=== PATIENT | male | born 2000 | race Hispanic/Latino ===

== ENCOUNTER 2024-02-27 20:57 | Emergency (ER) | payer OTHER ==
[~2024-02-27] VITALS: Ht 160 cm; Wt 61.2 kg
[2024-02-27] MEDS: 0.9%NACL 1000ML 1,000 ML IV STA ×2 (21:45→22:44)
[2024-02-27] MEDS: ONDANSETRON 4MG INJ IVP STA (21:45)
[2024-02-27 21:59] LABS: BASOPHILS # (AUTO) 0.06 K/uL (0.00-0.20); BASOPHILS % (AUTO) 0.3 % (0.0-5.0); HEMATOCRIT 47.2 % (42-54); IMMATURE GRANULOCYTE ABSOLUTE 0.14 K/uL (0-1); LYMPHOCYTES # (AUTO) 1.5 K/uL (1.0-4.8); LYMPHOCYTES % (AUTO) 7.2 % (21.0-51.0); MEAN CORPUSCULAR HEMOGLOBIN 28.3 pg (27.0-33.0); MEAN CORPUSCULAR HGB CONC 33.9 g/dL (32.0-36.0); MEAN CORPUSCULAR VOLUME 83.4 fL (80-100); MONOCYTES # (AUTO) 0.7 K/uL (0.1-1.0); MONOCYTES % (AUTO) 3.5 % (3.0-13.0); NEUTROPHILS % (AUTO) 88.3 % (40.0-77.0); PLATELET COUNT (AUTO) 334 K/uL (130-400); RED BLOOD CELL COUNT(AUTO) 5.66 MIL/uL (4.50-6.20); RED CELL DISTRIBUTION WIDTH 13.6 % (11.0-15.5); WHITE BLOOD COUNT (AUTO) 20.3 K/uL (4.8-10.8)
[2024-02-27 22:01] LABS: BILIRUBIN,URINE 0.5 mg/dL (NEGATIVE); COLOR,URINE YELLOW (YELLOW); GLUCOSE, URINE (UA) NEGATIVE (NEGATIVE); KETONES,URINE 5 mg/dL (NEGATIVE); LEUKOCYTE ESTERASE ,URINE NEGATIVE Leu/uL (NEGATIVE); NITRATE,URINE NEGATIVE (NEGATIVE); OCCULT BLOOD,URINE NEGATIVE (NEGATIVE); PROTEIN,URINE 100 mg/dL (NEGATIVE)
[2024-02-27 22:02] LABS: ADD UA MICROSCOPIC YES; APPEARANCE,URINE HAZY (CLEAR)
[2024-02-27 22:09] LABS: CREATININE 1.7 mg/dL (0.5-1.3); POTASSIUM 5.2 mmol/L (3.5-5.1)
[2024-02-27 22:14] LABS: BACTERIA,URINE FEW /HPF (None Seen); HYALINE CASTS, URINE 51-100 /LPF (0-1 /LPF); MUCUS,URINE RARE LPF (None Seen); SQUAMOUS EPITHELIAL CELL,UR RARE /HPF (0-2); WBC,URINE 0-1 /HPF (0-1)
[2024-02-27 22:15] LABS: AMPHET/METH SCREEN,URINE NEGATIVE (NEGATIVE); BARBITURATE SCREEN, URINE NEGATIVE (NEGATIVE); BENZODIAZEPINES SCREEN,URINE NEGATIVE (NEGATIVE); CANNABINOID SCREEN,URINE NEGATIVE (NEGATIVE); COCAINE SCREEN,URINE NEGATIVE (NEGATIVE); OPIATE SCREEN,URINE NEGATIVE (NEGATIVE); PHENCYCLIDINE SCREEN,URINE NEGATIVE (NEGATIVE)
[2024-02-27 22:37] LABS: WBC MORPHOLOGY CONSISTENT W/DIFF
[2024-02-27 23:59] VITALS: BP 120/67; PULSE 72; RESP 18; O2SAT 100
[2024-02-28] LABS: CREATININE 1.2 mg/dL (0.5-1.3); POTASSIUM 4.6 mmol/L (3.5-5.1)
== END 2024-02-28 00:26 | disposition home or self-care (01) ==
LOC: EDH 20:57
DX: E86.0 Dehydration (principal); R11.2 Nausea with vomiting, unspecified; Z79.899 Other long term (current) drug therapy
CPT/HCPCS: 99284; 96374; 82550; 84484; 80048 ×2; 80305; 85025; 36415; 93005; 81001; J7030 ×2; J2405

== ENCOUNTER 2024-04-14 22:49 | Emergency (ER) | payer SELFPAY ==
[~2024-04-14] VITALS: Ht 167.6 cm; Wt 61.2 kg
[2024-04-14] MEDS: DiphenhydrAMINE HCL 50 MG/ML VIAL IV ONE (23:29)
[2024-04-14] MEDS: FAMOTIDINE 20MG VIAL IV ONE (23:29)
[2024-04-14] MEDS: Solu-medROL 125MG VIAL IVP ONE (23:29)
[2024-04-14] MEDS ORDERED: FAMO-136 PO (23:56)
[2024-04-14] MEDS ORDERED: DIPH-1242 PO (23:56)
[2024-04-14] MEDS ORDERED: METH4TAB3 PO (23:56)
[2024-04-15 00:27] VITALS: BP 100/64; PULSE 50; RESP 18; TEMP 98.4; O2SAT 97
== END 2024-04-15 00:28 | disposition home or self-care (01) ==
LOC: EDH 22:49
DX: T78.1XXA Other adverse food reactions, not elsewhere classified, initial encounter (principal); Z79.899 Other long term (current) drug therapy; X58.XXXA Exposure to other specified factors, initial encounter
CPT/HCPCS: 99284; 96374; 96375; J1200; J3490; J2919